=== PATIENT | male | born 1990 | race Two or more races ===

== ENCOUNTER 2022-04-13 12:07 | Emergency (ER) | payer MEDICAID ==
[~2022-04-13] VITALS: Ht 167.6 cm; Wt 75.0 kg
[2022-04-13 13:11] VITALS: BP 128/84
[2022-04-13] MEDS ORDERED: LIDOCAINE VISCOUS 2% 15ML UD PO ONE (14:15)
[2022-04-13] MEDS ORDERED: MAALOX PLUS or MAALOX 30 ML PO ONE (14:15)
[2022-04-13] MEDS ORDERED: KETOROLAC TROMETH 30 MG/ML 1ML VIAL IM ONE (14:15)
[2022-04-13] MEDS ORDERED: ACETAMINOPHEN 500 MG TAB PO ONE (14:15)
[2022-04-13] MEDS ORDERED: ACET1CAP14 PO (14:56)
[2022-04-13] MEDS ORDERED: CYCL-839 PO (14:56)
== END 2022-04-13 14:56 | disposition home or self-care (01) ==
LOC: ER 12:07
DX: S16.1XXA Strain of muscle, fascia and tendon at neck level, initial encounter (principal); X58.XXXA Exposure to other specified factors, initial encounter; Y93.89 Activity, other specified; Y92.89 Other specified places as the place of occurrence of the external cause; Y99.8 Other external cause status
CPT/HCPCS: 72040; J1885